=== PATIENT | female | born 1960 | race Caucasian/White ===

== ENCOUNTER → 2023-10-04 13:30 | Outpatient (REF) | payer BC, SELFPAY | LOC: WDC 13:30 | PROVIDERS: ATTENDING PHYSICIAN Obstetrics & Gynecology Gynecology; FAMILY PHYSICIAN Nurse Practitioner Adult Health | DX: Z12.31 Encounter for screening mammogram for malignant neoplasm of breast (principal) | CPT/HCPCS: 77063; 77067 ==

== ENCOUNTER 2023-10-13 06:08 | Day surgery (SDC) | payer BC, SELFPAY ==
--- NOTE | 2023-09-13 08:15 | CM ---
Patient is scheduled for lumbar spine surgery on 10/13/23. Spoke with patient prior to surgery via telephone. Introduced role of the Orthopedic Navigator. Patient reports that she lives with her in a two story home. There are two steps to
enter and a flight of steps to the second floor. She currently functions independently. She has no DME and has never had VN services. PCP is Evon Mendez.
Discussed orthopedic program, post surgical plans and tentative plan for patient to return home when directed by surgeon. Patient is in agreement with tentative plan and will have support from her when she goes home.
Per surgical reservation sheet from Dr. Smith's office, patient does not need a brace.
Plan: Orthopedic Navigator will remain available to assist with the care of patient and will reassess discharge needs after surgery.
[2023-09-23 09:16] VITALS: BMI 36.4
[2023-09-23 10:10] LABS: Hematocrit 37.3 % (37.0-47.0); Hemoglobin 12.6 g/dL (12.0-16.0); Mean Corp Hgb Conc. 33.8 g/dL (33.0-37.0); Mean Corpuscular Hgb 30.7 pg (27.0-31.0); Mean Platelet Volume 10.1 fL (7.4-10.4); Platelet Count 251 10^3/uL (130-400); White Blood Cell Count 4.4 10^3/uL (4.8-10.8)
[2023-09-23 10:21] LABS: ALT (SGPT) 20 U/L (0-35); AST (SGOT) 27 U/L (14-36); Albumin 3.9 g/dl (3.5-5.0); Alkaline Phosphatase 70 U/L (38-126); Blood Urea Nitrogen 21 mg/dl (7-17); Carbon Dioxide 29 mmol/L (22-30); Chloride 104 mmol/L (98-107); Estimated Creatinine Clearance 77 ml/min; Glucose 77 mg/dl (70-99); Sodium 140 mmol/L (135-145); Total Bilirubin 0.5 mg/dl (0.2-1.3); Total Protein 6.2 g/dl (6.3-8.2); eGFR > 60.00
[2023-09-23 15:18] VITALS: BMI 36.4
[2023-10-13] VITALS (25 sets, daily range): BP systolic 111–166; BP diastolic 59–95; PULSE 93; O2SAT 97
[2023-10-13] MEDS: TYLENOL 1000 MG PO ×3 (06:50→19:46)
[2023-10-13] MEDS: SKELAXIN 800 MG PO (06:50)
[2023-10-13] MEDS: LYRICA 150 MG PO (06:50)
[2023-10-13] MEDS: NORMOSOL-R 1000 IV ×3 (06:50→21:26)
[2023-10-13] MEDS: CELEBREX 200 MG PO (06:50)
[2023-10-13] MEDS: SUBLIMAZE 50 MCG IV ×3 (09:42→10:15)
[2023-10-13] MEDS: SUBLIMAZE 25 MCG IV ×2 (10:30→10:35)
[2023-10-13] MEDS: DILAUDID 0.5 MG IV (11:00)
--- NOTE | 2023-10-13 13:15 | PTCARENOTE ---
Pt arrived to [facility] from PACU s/p L4-5 PSF. Pt lower back dressing C/D/I, NV intact. IVF infusing. Pt states 7/10 pain, no nausea. Pt oriented to call dewey and room, bed locked and in lowest position, call dewey within reach.
[2023-10-13] MEDS: LIPITOR 20 MG PO (13:58)
[2023-10-13] MEDS: LEXAPRO 20 MG PO (13:58)
[2023-10-13] MEDS: TRICOR 48 MG PO (13:58)
[2023-10-13] MEDS: ULTRAM 50 MG PO (13:58)
[2023-10-13] MEDS: LYRICA 75 MG PO (19:45)
[2023-10-13] MEDS: ANCEF 5 IV (19:45)
[2023-10-14] MEDS: TYLENOL 1000 MG PO ×2 (02:09→07:48)
[2023-10-14] MEDS: ULTRAM 50 MG PO (02:10)
[2023-10-14] MEDS: ANCEF 5 IV (02:10)
[2023-10-14 03:35] VITALS: BP 133/85
[2023-10-14 07:11] VITALS: BP 138/72
[2023-10-14] MEDS: NORMOSOL-R 1000 IV (07:46)
[2023-10-14] MEDS: LIPITOR 20 MG PO (07:48)
[2023-10-14] MEDS: LYRICA 75 MG PO (07:48)
[2023-10-14] MEDS: LEXAPRO 20 MG PO (07:48)
[2023-10-14] MEDS: TRICOR 48 MG PO (07:49)
[2023-10-14 09:10] VITALS: BP 128/79; PULSE 83; O2SAT 100
--- NOTE | 2023-10-14 09:15 | CM ---
Addendum entered by Divina Ayala 10/14/23 09:29:
Patient did well in therapy. She has no concerns about going home. No discharge planning needs identified.
Original Note:
Reviewed chart and held rounds with PT, OT and RN. Patient had planned lumbar spine surgery with Dr. Smith on 10/13. Met with patient at bedside. Confirmed information previously obtained for assessment and discussed discharge plans. Patient continues
to plan to return home at discharge. She will have support from her when she goes home. Reviewed that she will work with PT/OT this morning and that discharge needs will depend on his functional status. However, no needs currently
identified.
Patient has a walking stick at home.
Patient will use [facility] pharmacy for discharge prescriptions
Discharge plans were reviewed with patient's on 10/13.
[2023-10-14 09:21] VITALS: BP 128/79; PULSE 83; O2SAT 100
--- NOTE | 2023-10-14 10:06 | W.PN.ORTHO ---
Today's Communication / Plan
-
d/c
Assessment
.
Distal Motor Intact: Yes
Dressing:
Clean, dry and intact.
Plan
.
Surgery / Date: L4-5 psf w/ inst Dr. Smith 10/13/23
Activity:
Out of bed.
PT/OT
Discharge Plan: Home
Subjective
.
.:
Patient resting comfortably.
Vital Signs and Labs
.
Vital Signs and Labs:
Lab Results
09/23/23 09:04
09/23/23 09:04
Temp Pulse Resp BP Pulse Ox
98.2 F 76 17 138/72 98
10/14/23 07:11 10/14/23 07:11 10/14/23 07:11 10/14/23 07:11 10/14/23 08:00
Physical Exam
-
HEENT: No pallor, cyanosis, or jaundice. Throat clear.
NECK: Supple. No JVD.
RESPIRATORY: Lungs clear to auscultation.
CVS: S1, S2 normal. RRR.� No murmur, rub or gallop.
ABDOMEN: Soft, non-tender. No distension. BS+/normal.
EXTREMITIES: strength equal, no calf pain with palpation
SECURITY AND COMPLIANCE PROJECT MANAGER: AOx3. No focal deficits. base filler operator grossly intact
--- NOTE | 2023-10-14 10:13 | W.DS.TRANS ---
DC Summary - Smoking Pipe Coater
-
Discharge Instructions:
Sleep Apnea Risk Intermediate
Discharge Diagnosis/Procedures L4-5 psf w/ inst Dr. Smith 10/13/23
Diet As tolerated
Activity No strenuous activity
Driving Restrictions No driving
Instructions:
Stand-Alone Forms: [facility].
Changes to Home Medications: Yes
Discharge Medications:
DC Medications w/original date entered in [facility]
Medical Marijuana 1 dose PO PRN PRN pain 09/21/23
atorvastatin 20 mg tablet 20 mg PO DAILY 09/21/23
escitalopram oxalate 20 mg tablet 20 mg PO DAILY 09/21/23
fenofibrate nanocrystallized 48 mg tablet 48 mg PO DAILY 09/21/23
isosorbide mononitrate 30 mg tablet,extended release 24 hr 30 mg PO DAILY 09/21/23
mecobalamin (vitamin B12) 1,000 mcg chewable tablet (B12 Active) 1,000 mcg PO DAILY 09/21/23
[id number] 45 mg-folic acid 800 mcg-vit K 120 mcg capsule (Bariatric Multivitamins) 2 cap PO DAILY 09/21/23
valsartan 320 mg tablet 320 mg PO DAILY 09/21/23
Ozempic SC WEEKLY 10/13/23
Saccharomyces boulardii 250 mg capsule (Florastor) 250 mg PO BID #1 cap 10/14/23
acetaminophen 325 mg capsule (Tylenol) 650 mg PO QID #2 caps 10/14/23
cephalexin 500 mg capsule 500 mg PO QID infection prevention #20 caps 10/14/23
cyclobenzaprine 5 mg tablet 5 mg PO BID muscle pain/sleep #30 tabs 10/14/23
dexamethasone 4 mg tablet 4 mg PO BID inflammation #6 tabs 10/14/23
docusate sodium 100 mg capsule (Colace) 100 mg PO BID stool softner #1 cap 10/14/23
gabapentin 300 mg capsule 300 mg PO HS sleep/pain #10 caps 10/14/23
magnesium hydroxide 400 mg/5 mL oral suspension (Milk of Magnesia) 30 ml PO HS PRN Constipation #1 mL 10/14/23
oxycodone 5 mg tablet 5 - 10 mg PO Q6HPRN PRN 1 tab moderate-2 tabs severe pain #30 tabs 10/14/23
sennosides 8.6 mg tablet (Senokot) 17.2 mg PO BID laxative #2 tabs 10/14/23
Home Medication Changes
cephalexin 500 mg capsule 500 mg PO QID� infection prevention #20 caps 10/14/23�
cyclobenzaprine 5 mg tablet 5 mg PO BID muscle pain/sleep #30 tabs 10/14/23�
dexamethasone 4 mg tablet 4 mg PO BID inflammation #6 tabs 10/14/23�
gabapentin 300 mg capsule 300 mg PO HS sleep/pain #10 caps 10/14/23�
oxycodone 5 mg tablet 5 - 10 mg PO Q6HPRN PRN 1 tab moderate-2 tabs severe pain #30 tabs 10/14/23�
Pending Results: No
== END 2023-10-14 10:52 | disposition home or self-care (01) ==
LOC: SDS 06:08
PROVIDERS: ATTENDING PHYSICIAN Orthopaedic Surgery Orthopaedic Surgery of the Spine; FAMILY PHYSICIAN Nurse Practitioner Adult Health; OTHER PHYSICIAN Internal Medicine; OTHER PHYSICIAN Physician Assistant Medical
DX: M48.062 Spinal stenosis, lumbar region with neurogenic claudication (principal); M43.16 Spondylolisthesis, lumbar region; Z87.891 Personal history of nicotine dependence
CPT/HCPCS: 22612; 22840; 20930; 36415; 72100; 76000; 80053; 85027; 86850; 86900; 86901; 87070; 93005; 97116; 97162; 97166; 97530; 97535; C1713; C1776

== ENCOUNTER → 2024-11-08 08:34 | Outpatient (REF) | payer MEDICARE, SELFPAY | LOC: WDC 08:34 | PROVIDERS: ATTENDING PHYSICIAN Obstetrics & Gynecology Gynecology; FAMILY PHYSICIAN Nurse Practitioner Adult Health | DX: Z12.31 Encounter for screening mammogram for malignant neoplasm of breast (principal) | CPT/HCPCS: 77063; 77067 ==

== ENCOUNTER 2025-03-02 06:18 | Day surgery (SDC) | payer MEDICARE, SELFPAY | END 2025-03-02 09:15 | disposition home or self-care (01) | LOC: GI 06:18 | PROVIDERS: ATTENDING PHYSICIAN Internal Medicine Gastroenterology | DX: Z12.11 Encounter for screening for malignant neoplasm of colon (principal); K64.8 Other hemorrhoids; D12.0 Benign neoplasm of cecum; D12.5 Benign neoplasm of sigmoid colon | CPT/HCPCS: 45385; 88305 ==